=== PATIENT | male | born 1965 | race Caucasian/White ===

== ENCOUNTER 2016-12-05 07:40 | Observation (INO) | payer OTHER ==
--- NOTE | ~2016-12-05 | DS ---
Unit #: [id number] #: [id number] Patient: MALORIE TAM [id number] [facility] [address]. [place], [place] [address] [id number] MR#: [id number] NAME: MALORIE TAM ROOM: [facility] Age: 51 Sex: M Admission Date: 12/05/2016 : 1965 Discharge Date: 12/05/2016 Attending Physician: Teo Julian M.D. Primary Care Physician: Kathy Muhammad DISCHARGE SUMMARY DISCHARGE DIAGNOSES 1. Chest pain, noncardiac. 2. History of diabetes. 3. Hypercholesterolemia. BRIEF HISTORY AND HOSPITAL COURSE This is a 51-year-old man who was admitted in the last one month at [facility], then at [facility]. Both times, he had chest pain. He was admitted here at [facility] because of substernal chest pain relieved by nitroglycerin. Because he is having recurrent chest pain, we decided to bring him to the laboratory aide. He had a cath done by me showing normal coronary arteries, normal LV size and function. He will be discharged home soon. DISCHARGE MEDICATIONS 1. Aspirin 81 mg p.o. daily. 2. Lipitor 40 mg daily. 3. Prilosec 40 mg daily. 4. Continue with insulin. FOLLOWUP With me in 4 weeks. Dictated by... Jose Arciniega/myra TD: 12/06/2016 23:21 JOB #: [id number] Unit #: [id number] #: [id number] Patient: MALORIE TAM DISCHARGE SUMMARY X Teo Julian MD X DISCHARGE SUMMARY
--- NOTE | ~2016-12-05 | EKG ---
PATIENT: MALORIE TAM UNIT #: [id number] Ventricular Rate: 81 BPM Atrial Rate: 81 BPM P-R Interval: 140 ms QRS Duration: 88 ms Q-T Interval: 382 ms QTC Calculation(Bezet): 443 ms P Commerce: 58 degrees Calculated R Commerce: 52 degrees Calculated T Commerce: 55 degrees Diagnosis Line: Normal sinus rhythm Diagnosis Line: Nonspecific ST abnormality Diagnosis Line: Abnormal ECG Diagnosis Line: No previous ECGs available Diagnosis Line: Confirmed by KAROLINE VINCENT MD ([id number]) on Diagnosis Line: 12/05/2016 4:15:01 PM INTERPRETING MD: CARLTON BOOTHE
--- NOTE | ~2016-12-05 | EKG ---
PATIENT: MALORIE TAM UNIT #: [id number] Ventricular Rate: 74 BPM Atrial Rate: 74 BPM P-R Interval: 136 ms QRS Duration: 86 ms Q-T Interval: 408 ms QTC Calculation(Bezet): 452 ms P Eustace: 39 degrees Calculated R Eustace: 54 degrees Calculated T Eustace: 58 degrees Diagnosis Line: Normal sinus rhythm Diagnosis Line: Nonspecific ST abnormality Diagnosis Line: Abnormal ECG Diagnosis Line: When compared with ECG of 05-DEC-2016 06:56, Diagnosis Line: (unconfirmed) Diagnosis Line: No significant change was found Diagnosis Line: Confirmed by ASHUTOSH MADRIGAL MD ([id number]) on 12/06/2016 Diagnosis Line: 7:16:42 AM INTERPRETING MD: ROHAN BOOTHE
--- NOTE | ~2016-12-05 | HP ---
Unit #: [id number] #: [id number] Patient: MALORIE DRAPER [id number] [address] [place], [place] [address] [id number] MR#: [id number] NAME: MALORIE DRAPER ROOM: [id number] Age: 51 Sex: M Admission Date: 12/05/2016 : 1965 Attending Physician: Teo Julian M.D. Primary Care Physician: Kathy Muhammad HISTORY AND PHYSICAL CHIEF COMPLAINT Chest pain. HISTORY OF PRESENT ILLNESS The patient is a 51-year-old male with a history of diabetes mellitus, hypertension, obstructive sleep apnea on CPAP and tobacco use, who awoke this morning at 2:30 a.m. with crushing chest pain. The patient states that the pain was in the mid sternal area and lasted approximately 20 minutes. He denied associated shortness of breath but did have nausea and no vomiting. He also denies diaphoresis. The patient took a baby aspirin and the chest pain seemed to resolve after about 20 minutes. The patient went back to bed and then got up this morning to go to work when he again experienced the chest pain while driving on the [place]. He states it was the same crushing chest pain. It lasted approximately three to four minutes. He decided to come into the emergency department for evaluation. The patient has had other episodes of recent chest pain and was at [facility] for chest pain November 08, 2016. At that time, he had a Lexiscan Cardiolite which was a technically difficult study due to the patient's body habitus. There was significant diaphragmatic attenuation artifact. There was no diagnostic pattern for stress-induced ischemia. There were fixed defects with preserved contractility of the inferior and inferolateral cardiac segments most likely representing diaphragmatic attenuation artifacts rather than prior infarct. The patient's ejection fraction was 74%. The patient reports at [place] he was informed his chest pain was likely due to a pulled muscle. The patient shortly after went to [facility] and was told his chest pain was due to pleurisy. The patient feels that the chest pain has improved. However, he does complain of mid and upper backache. He denies problems with orthopnea, PND, dizziness or syncope. PAST MEDICAL HISTORY 1. Diabetes mellitus, on insulin. 2. Hypertension. 3. Obstructive sleep apnea, on CPAP. 4. Neuropathy. 5. Migraines. 6. GERD. PAST SURGICAL HISTORY 1. Appendectomy. 2. Cholecystectomy. 3. Hernia repair. FAMILY HISTORY Unit #: [id number] #: [id number] Patient: MALORIE DRAPER Mother had an WA at 50 and of an WA at 62. SOCIAL HISTORY Smokes one half packs daily. He denies alcohol or illicit drug use. 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 REVIEW OF SYSTEMS GENERAL: He denies recent fevers or chills. He does say two days ago he did not feel well and only had some nonspecific complaints. He does report working around mold recently. HEENT: He has occasional migraines. NECK: Denies swollen glands or pain. PULMONARY: Denies cough, hemoptysis or wheezing. CARDIAC: Chest pain as discussed above. Denies palpitations, tachycardia, orthopnea or PND. GI: He had some nausea but no vomiting, diarrhea or melena. : Denies hematuria. EXTREMITIES: Denies swelling or claudication. He does have problems with neuropathy. NEURO: Denies dizziness or syncope. DIAGNOSTIC STUDIES LABORATORY: Troponin was less than 0.05 at 8:07 this morning. D-dimer 185. Sodium 134, potassium 3.7, chloride 102, CO2 23, glucose 275, BUN 9, creatinine 0.6. AST 19, ALT 25, ALP 117, lipase 29, CK MB 1.3. White blood cell 11.1, hemoglobin 15.1, hematocrit 44.1, platelets 246. CARDIOVASCULAR: EKG shows normal sinus rhythm. HOME MEDICATIONS 1. Gabapentin 800 mg three times daily. 2. Metoprolol 25 mg twice daily. 3. Aspirin 81 mg daily. 4. NovoLog 8 units three times daily. 5. Levemir 30 units q. h.s. ALLERGIES IV dye. PHYSICAL EXAMINATION VITAL SIGNS: Blood pressure is 132/84, heart rate 78 and regular, respirations 15 and regular, temperature 98.3. Weight is 270 pounds. GENERAL: The patient is a well developed, well nourished, obese male in no acute distress. Alert and oriented x3. SKIN: No rashes or hives. HEENT: Head is normocephalic, atraumatic. There is no xanthelasma. Oral mucosa is pink and moist. NECK: No JVD or carotid bruits. SPINE: No scoliosis. CHEST: Clear to auscultation bilaterally without wheezes, rhonchi, rale or accessory muscle use. COR: Regular rate and rhythm without murmur, gallop, rub or lift. ABDOMEN: Soft, nontender, nondistended. Positive bowel sounds x4. The abdominal aortic pulsation is not enlarged. EXTREMITIES: No clubbing, cyanosis or edema. NEUROLOGICAL: Alert and oriented x3. ASSESSMENT AND PLAN Unit #: [id number] #: [id number] Patient: MALORIE DRAPER 1. Unstable angina. 2. Diabetes mellitus, on insulin. 3. Hypertension. 4. Tobacco use. 5. Peripheral neuropathy. 6. Obstructive sleep apnea, on CPAP. 7. Obesity. 8. Gastroesophageal reflux disease. Mr. Draper's case was discussed with Dr. Teo Julian who also evaluated the patient. He will be set up for a left heart catheterization later today. He will be premedicated for his IV dye allergy. We will continue to follow serial troponins. Further recommendations will follow the completion of this procedure. Dictated by Kya Paniagua. for Teo Julian M.D. CMG/jonathon TD: 12/05/2016 10:50 JOB #: [id number] HISTORY AND PHYSICAL X X HISTORY AND PHYSICAL
--- NOTE | ~2016-12-05 | CR63 ---
[facility] A Service of [facility] RADIOLOGY TEXT RESULTS PATIENT: MALORIE TAM LOCATION: [facility] 554-01 : [birth year] UNIT #: [id number] AGE: [address]: Teo Julian MD SEX: M ORDER DR: [id number] [facility] [address]. [place], [place] [address] [id number] MR#: [id number] Acc #: [id number] NAME: MALORIE TAM : 1965 SEX: M STUDY DATE/TIME: 12/05/2016 7:54 [facility] [address] STUDY DESCRIPTION: CR Chest 2 View Attending Physician: Teo Julian M.D. Ordering Physician: Antony Proctor M.D. Primary Care Physician: Kathy Muhammad MEDICAL IMAGING REPORT This report is preliminary unless electronic signature is present EXAM PA and lateral chest 2 views, 12/05/2016 COMPARISON Prior chest, 04/25/2016 HISTORY Chest pain and short of air for one day. FINDINGS PA and lateral examination of the chest upright shows a good expansion of the parenchyma with a normal distribution of the pulmonary vascularity. There is no indication of congestion, effusion, infiltrate, tumor, or nodular density. The pleural reflections and diaphragmatic contours are normal. The cardiac silhouette and mediastinal anatomy is within normal limits. IMPRESSION Normal chest. Dictated by... Telly Zeng M.D. THIS IS AN ELECTRONICALLY VERIFIED REPORT Telly Zeng M.D. at 12/06/2016 11:48 AM Jyothi TD: 12/05/2016 11:42 JOB #: [id number] MEDICAL IMAGING REPORT COPY
[2016-12-05 07:50] LABS: BASOPHIL# 0.1 X10e3 (0-0.3); BASOPHIL% 0.6 % (0-2.5); EOSINOPHIL# 0.1 X10e3 (0-0.7); EOSINOPHIL% 0.9 % (0.0-7.0); HEMATOCRIT 44.1 % (38.0-50.0); HEMOGLOBIN 15.1 gm/dL (13.0-16.0); LYMPHOCYTE# 3.3 X10e3 (1.0-3.5); MEAN CELL VOLUME 83.8 FL (83-96); MEAN CORPUSCULAR HEMOGLOBIN 28.8 PG (28-34); MEAN CORPUSCULAR HGB CONC 34.3 g/dL (30-36); MONOCYTE# 0.4 X10e3 (0-1.0); MONOCYTE% 3.6 % (3.0-12.0); NEUTROPHIL# 7.2 X10e3 (1.5-7.1); NEUTROPHIL% 64.9 % (40-75); PLATELET COUNT 246 X10e3 (140-420); RED BLOOD COUNT 5.25 X10e (3.90-5.60); RED CELL DISTRIBUTION WIDTH 13.1 % (11.0-15.5); WHITE BLOOD COUNT 11.1 X10e3 (4.0-10.5)
[2016-12-05 07:54] LABS: DIFF IND NO
[2016-12-05 08:08] LABS: POC - CKMB 1.3 ng/mL (0.0-7.9); POC - TROPONIN <0.05 ng/mL (<=0.05)
[2016-12-05 08:25] LABS: ALBUMIN SERUM 3.6 g/dL (3.5-5.0); ALKALINE PHOSPHATASE 117 U/L (32-92); ALT (SGPT) 25 U/L (10-40); AST (SGOT) 19 U/L (10-42); BILIRUBIN,TOTAL 0.5 mg/dL (0.2-2.0); BLOOD UREA NITROGEN 9 mg/dL (9-23); CALCIUM SERUM 8.8 mg/dL (8.4-10.2); CARBON DIOXIDE 23 mmol/L (22-31); CHLORIDE 102 mmol/L (100-111); CREATININE SERUM 0.6 mg/dL (0.6-1.4); GLOM FILT RATE Estimated ABOVE60 mL/min (>60); GLUCOSE FASTING 275 mg/dL (70-110); LIPASE 29 U/L (22-51); POTASSIUM 3.7 mmol/L (3.5-5.1); SODIUM 134 mmol/L (135-145)
[2016-12-05 09:18] LABS: PARTIAL THROMBOPLASTIN TIME 27.1 SECONDS (23.5-31.3)
[2016-12-05 10:24] LABS: POC - CKMB <1.0 ng/mL (0.0-7.9); POC - TROPONIN <0.05 ng/mL (<=0.05)
[2016-12-05] MEDS ORDERED: NEURONTIN800 MG PO (12:17)
[2016-12-05] MEDS ORDERED: ASPIRIN81 M2 PO (12:18)
[2016-12-05] MEDS ORDERED: METOPROLOL SUCC25 MG PO (12:18)
[2016-12-05] MEDS ORDERED: NOVOLOG100 U/M2 SUBQ (12:18)
[2016-12-05] MEDS ORDERED: LEVEMIR100 UNITS/ SUBQ (12:19)
[2016-12-05] MEDS ORDERED: LIPITOR40 MG (19:25)
[2016-12-05] MEDS ORDERED: PRILOSEC PO (19:25)
[2016-12-05] MEDS ORDERED: LIPITOR40 MG PO (19:37)
== END 2016-12-05 21:45 | disposition home or self-care (01) | DRG 313 ==
LOC: CED 07:40 → CEDOF 09:35 → C5B 13:03
PROVIDERS: Emergency Medicine; Internal Medicine Cardiovascular Disease
DX: R07.89 Other chest pain (principal); I10 Essential (primary) hypertension; E11.42 Type 2 diabetes mellitus with diabetic polyneuropathy; Z79.4 Long term (current) use of insulin; G47.33 Obstructive sleep apnea (adult) (pediatric); E66.9 Obesity, unspecified; K21.9 Gastro-esophageal reflux disease without esophagitis; Z91.041 Radiographic dye allergy status; F17.200 Nicotine dependence, unspecified, uncomplicated; E78.00 Pure hypercholesterolemia, unspecified; I25.2 Old myocardial infarction; I07.1 Rheumatic tricuspid insufficiency; Z79.82 Long term (current) use of aspirin
CPT/HCPCS: 36415; 71020; 80053; 82553; 82947; 83690; 84484; 85025; 85379; 85610; 85730; 93005; 96361; 99285; C1760; C1769; G0378; J1644; J2250; J3010